=== PATIENT | female | born 1970 | race Caucasian/White ===

== ENCOUNTER 2018-05-22 10:46 | Day surgery (SDC) | payer MEDICAID ==
[~2018-05-22] VITALS: Ht 158.8 cm; Wt 62.7 kg
[~2018-05-22 10:46] MED LIST: SODIUM CHLORIDE 0.9% 1,000 ML IV ONE
[2018-05-22] MEDS ORDERED: LIDOCAINE HCL/PF 2% 5 ML VIAL IM ONE (10:47)
[2018-05-22] MEDS ORDERED: MIDAZOLAM HCL 2 MG/2 ML VIAL IVP ONE (10:47)
[2018-05-22] MEDS ORDERED: PROPOFOL 1% 20 ML VIAL IVP ONE (10:47)
[2018-05-22] MEDS ORDERED: SODIUM CHLORIDE 0.9% 1,000 ML IV ONE (10:58)
[2018-05-22] MEDS ORDERED: ONDA4TAB10 PO (11:27)
[2018-05-22] MEDS ORDERED: ACET-66 PO (11:27)
[2018-05-22] MEDS ORDERED: OMEP20CA10 PO (11:27)
== END 2018-05-22 14:35 | disposition home or self-care (01) ==
LOC: SURGERY 10:46
PROVIDERS: ATTEND Internal Medicine Gastroenterology
DX: K29.50 Unspecified chronic gastritis without bleeding (principal); K21.9 Gastro-esophageal reflux disease without esophagitis; Z87.440 Personal history of urinary (tract) infections; Z85.42 Personal history of malignant neoplasm of other parts of uterus; Z98.51 Tubal ligation status; Z79.891 Long term (current) use of opiate analgesic; Z98.890 Other specified postprocedural states; Z79.899 Other long term (current) drug therapy
CPT/HCPCS: 43235; 88305; 88312; C1769; J2250; J2704; J3490; J7030